=== PATIENT | male | born 1955 | race Caucasian/White ===

== ENCOUNTER → 2021-01-04 | Day surgery (SDC) | payer MEDICARE, OTHER | LOC: CSHRAD 10:10 | PROVIDERS: ATTEND Internal Medicine Gastroenterology | DX: R18.8 Other ascites (principal) | CPT/HCPCS: 76705 ==

== ENCOUNTER → 2021-01-31 | Day surgery (SDC) | payer MEDICARE, OTHER ==
[~2021-01-31] MED LIST: Albumin 25% 200 ML ONE; FLU VACC QS2020-21(65YR UP)/PF 240 MCG/0.7 ML SYRINGE IM ONE; Lidocaine 1% PF 5 ML VIAL ONE; Sodium Bicarbonate 2.5 MEQ/5 ML VIAL ONE
[2021-01-31 11:52] VITALS: BP 114/70
== END ==
LOC: CSHRAD 09:57
PROVIDERS: ATTEND Internal Medicine Gastroenterology
DX: R18.8 Other ascites (principal)
CPT/HCPCS: 49083; P9047

== ENCOUNTER → 2021-03-08 | Day surgery (SDC) | payer MEDICARE, OTHER ==
[~2021-03-08] MED LIST changes: +Albumin 25% 100 ML ONE; -Albumin 25% 200 ML ONE; -FLU VACC QS2020-21(65YR UP)/PF 240 MCG/0.7 ML SYRINGE IM ONE; -Lidocaine 1% PF 5 ML VIAL ONE
== END ==
LOC: CSHRAD 07:13
PROVIDERS: ATTEND Internal Medicine Gastroenterology
DX: R18.8 Other ascites (principal); K74.60 Unspecified cirrhosis of liver
CPT/HCPCS: 49083; P9047

== ENCOUNTER 2021-06-07 09:51 | Day surgery (SDC) | payer MEDICARE, OTHER ==
[2021-06-07] MEDS ORDERED: Sodium Bicarbonate 2.5 MEQ/5 ML VIAL ONE (10:48)
[2021-06-07] MEDS ORDERED: Albumin 25% 100 ML ONE ×2 (11:04→11:08)
== END 2021-06-07 12:25 | disposition home or self-care (01) ==
LOC: CSHRAD 09:51
PROVIDERS: ATTEND Internal Medicine Gastroenterology
DX: R18.8 Other ascites (principal)
CPT/HCPCS: 49083; P9047

== ENCOUNTER 2021-09-04 09:48 | Day surgery (SDC) | payer MEDICARE, OTHER ==
[2021-09-04] MEDS ORDERED: Albumin 25% 100 ML ONE (10:17)
[2021-09-04] MEDS ORDERED: Sodium Bicarbonate 2.5 MEQ/5 ML VIAL ONE (10:18)
[2021-09-04 10:33] VITALS: BP 136/65; TEMP 97.4
[2021-09-04] MEDS ORDERED: FLU VACC QS2021-22(65YR UP)/PF 240 MCG/0.7 ML SYRINGE IM ONE (10:45)
[2021-09-04 16:20] LABS: Fluid, Protein 1.7 g/dL (Not Available)
== END 2021-09-04 11:44 | disposition home or self-care (01) ==
LOC: CSHRAD 09:48
PROVIDERS: ATTEND Internal Medicine Gastroenterology
DX: R18.8 Other ascites (principal)
CPT/HCPCS: 49083; 82945; 84157; P9047; 88112

== ENCOUNTER 2021-10-09 10:20 | Day surgery (SDC) | payer MEDICARE, OTHER ==
[2021-10-09] MEDS ORDERED: Lidocaine 1% PF 5 ML VIAL ONE (11:49)
[2021-10-09] MEDS ORDERED: Albumin 25% 100 ML ONE (11:49)
[2021-10-09] MEDS ORDERED: Sodium Bicarbonate 2.5 MEQ/5 ML VIAL ONE (11:49)
== END 2021-10-09 13:00 | disposition home or self-care (01) ==
LOC: CSHRAD 10:20
PROVIDERS: ATTEND Internal Medicine Gastroenterology
DX: R18.8 Other ascites (principal); K74.60 Unspecified cirrhosis of liver
CPT/HCPCS: 49083; P9047

== ENCOUNTER 2021-11-06 09:56 | Day surgery (SDC) | payer MEDICARE, OTHER ==
[2021-11-06 10:29] VITALS: BP 132/62; TEMP 98.9
[2021-11-06] MEDS ORDERED: Sodium Bicarbonate 2.5 MEQ/5 ML VIAL ONE (10:31)
[2021-11-06] MEDS ORDERED: Lidocaine 1% PF 5 ML VIAL ONE (10:31)
[2021-11-06] MEDS ORDERED: Albumin 25% 100 ML ONE (10:31)
== END 2021-11-06 11:35 | disposition home or self-care (01) ==
LOC: CSHRAD 09:56
PROVIDERS: ATTEND Internal Medicine Gastroenterology
DX: R18.8 Other ascites (principal)
CPT/HCPCS: 49083; P9047

== ENCOUNTER 2021-11-29 08:35 | Day surgery (SDC) | payer MEDICARE, OTHER ==
[2021-11-29] MEDS ORDERED: Albumin 25% 100 ML ONE (09:24)
[2021-11-29] MEDS ORDERED: Sodium Bicarbonate 2.5 MEQ/5 ML VIAL ONE (09:24)
[2021-11-29] MEDS ORDERED: Lidocaine 1% PF 5 ML VIAL ONE ×2 (09:24→09:40)
[2021-11-29 09:44] LABS: INR-International Normal Ratio 1.1; Prothrombin Time 12.4 sec (9.5-12.1)
[2021-11-29 10:03] LABS: #Eosinphils 0.1 10x3/uL (0.0-0.5); #Monocytes 0.7 10x3/uL (0.0-1.1); #Neutrophils 6.3 10x3/uL (1.5-8.4); %Basophils 0.4 % (0.0-2.0); %Eosinophils 0.8 % (0.0-6.0); %Lymphocytes 6.7 % (18.0-47.0); %Neutrophils 82.8 % (40.0-75.0); Hemoglobin 5.8 g/dL (13.5-17.5); Mean Corpuscular HGB CONC 27.8 g/dL (32.0-36.0); Mean Corpuscular Hemoglobin 21.9 pg (27.0-33.0); Mean Corpuscular Volume 78.9 fl (81.2-95.1); Mean Platelet Volume 12.2 fl (7.4-10.4); Platelet Count 104 10x3/uL (150-450); RBC Distribution Width 20.6 % (11.5-14.5); Red Blood Cell (RBC) Count 2.65 10x6/uL (4.32-5.72); White Blood Cell (WBC) Count 7.6 10x3/uL (3.5-10.5)
[2021-11-29 11:14] LABS: Hypochromia SLIGHT = 6-15 cells (100X) (0-5/hpf); Ovalocytes SLIGHT = 2-5 cells (100X) (0-1/hpf); Platelet Morphology Comment Appears Decreased; Polychromasia SLIGHT = 2-3 cells (100X) (0-2/hpf)
== END 2021-11-29 10:30 | disposition still patient (30) ==
LOC: CSHRAD 08:35
PROVIDERS: ATTEND Internal Medicine Gastroenterology
DX: R18.8 Other ascites (principal)
CPT/HCPCS: 49083; 85025; 85610; P9047

== ENCOUNTER 2021-11-29 10:35 | Observation (INO) | payer MEDICARE, OTHER ==
[2021-11-29 11:42] LABS: #Monocytes 0.6 10x3/uL (0.0-1.1); #Neutrophils 5.6 10x3/uL (1.5-8.4); %Basophils 0.1 % (0.0-2.0); %Eosinophils 0.6 % (0.0-6.0); %Lymphocytes 6.5 % (18.0-47.0); %Monocytes 9.1 % (0.0-10.0); %Neutrophils 83.3 % (40.0-75.0); Hemoglobin 5.6 g/dL (13.5-17.5); Mean Corpuscular HGB CONC 27.5 g/dL (32.0-36.0); Mean Corpuscular Hemoglobin 21.9 pg (27.0-33.0); Mean Corpuscular Volume 79.7 fl (81.2-95.1); Mean Platelet Volume 11.2 fl (7.4-10.4); Platelet Count 96 10x3/uL (150-450); RBC Distribution Width 20.4 % (11.5-14.5); Red Blood Cell (RBC) Count 2.56 10x6/uL (4.32-5.72); White Blood Cell (WBC) Count 6.8 10x3/uL (3.5-10.5)
[2021-11-29 12:05] LABS: ALT (SGPT) 23 U/L (8-55); AST (SGOT) 33 U/L (5-34); Albumin 3.4 g/dL (3.4-4.8); Alkaline Phosphatase 91 U/L (40-110); Anion Gap 15 mmol/L (10-20); BUN (Urea Nitrogen) 38 mg/dL (8.4-25.7); Bilirubin, Total 1.1 mg/dL (0.2-1.2); Calc. Creatinine Clearance 0 mL/min (70-130); Calcium 8.8 mg/dL (7.8-10.44); Carbon Dioxide 18 mmol/L (23-31); Chloride 105 mmol/L (98-107); Globulin 3.8 g/dL (2.4-3.5); Glucose 108 mg/dL (80-115); Protein, Total 7.2 g/dL (5.8-8.1); Sodium 133 mmol/L (136-145)
[2021-11-29 12:24] LABS: SARS-CoV-2 NAA Rapid Test Not Detected (NotDetected)
[2021-11-29] MEDS ORDERED: Ondansetron ODT 4 MG TAB PO PRN (13:38)
[2021-11-29] MEDS ORDERED: Acetaminophen 325 MG TAB PO PRN (13:38)
[2021-11-29] MEDS ORDERED: Ondansetron PF 4 MG/2 ML Vial IVP PRN (13:38)
[2021-11-29] MEDS ORDERED: Acetaminophen 650 MG Suppository PR PRN (13:38)
[2021-11-29 15:41] LABS: Hemoglobin 6.3 g/dL (13.5-17.5)
[2021-11-29 16:54] VITALS: BMI 30.2
[2021-11-30 05:46] LABS: Anion Gap 14 mmol/L (10-20); BUN (Urea Nitrogen) 36 mg/dL (8.4-25.7); Calc. Creatinine Clearance 52 mL/min (70-130); Calcium 8.3 mg/dL (7.8-10.44); Carbon Dioxide 18 mmol/L (23-31); Chloride 105 mmol/L (98-107); Glucose 103 mg/dL (80-115); Iron 44 ug/dL (65-175); Iron Binding Capacity, Total 326 mcg/dL (261-462); Potassium 4.9 mmol/L (3.5-5.1); Sodium 132 mmol/L (136-145)
[2021-11-30 05:47] LABS: Iron 44 ug/dL (65-175); Iron Binding Capacity, Total 320 mcg/dL (261-462)
[2021-11-30 07:21] LABS: #Eosinphils 0.2 10x3/uL (0.0-0.5); #Monocytes 0.6 10x3/uL (0.0-1.1); %Basophils 0.5 % (0.0-2.0); %Eosinophils 2.6 % (0.0-6.0); %Lymphocytes 8.1 % (18.0-47.0); %Monocytes 9.8 % (0.0-10.0); %Neutrophils 78.5 % (40.0-75.0); Hemoglobin 7.1 g/dL (13.5-17.5); Mean Corpuscular HGB CONC 30.1 g/dL (32.0-36.0); Mean Corpuscular Hemoglobin 23.4 pg (27.0-33.0); Mean Corpuscular Volume 77.9 fl (81.2-95.1); Mean Platelet Volume 11.1 fl (7.4-10.4); Platelet Count 97 10x3/uL (150-450); RBC Distribution Width 19.4 % (11.5-14.5); Red Blood Cell (RBC) Count 3.03 10x6/uL (4.32-5.72); White Blood Cell (WBC) Count 6.4 10x3/uL (3.5-10.5)
[2021-12-01 06:15] LABS: #Eosinphils 0.2 10x3/uL (0.0-0.5); #Monocytes 0.8 10x3/uL (0.0-1.1); #Neutrophils 5.5 10x3/uL (1.5-8.4); %Basophils 0.6 % (0.0-2.0); %Eosinophils 3.2 % (0.0-6.0); %Lymphocytes 6.9 % (18.0-47.0); %Monocytes 11.7 % (0.0-10.0); %Neutrophils 77.2 % (40.0-75.0); Hemoglobin 7.4 g/dL (13.5-17.5); Mean Corpuscular HGB CONC 29.7 g/dL (32.0-36.0); Mean Corpuscular Hemoglobin 23.3 pg (27.0-33.0); Mean Corpuscular Volume 78.3 fl (81.2-95.1); Mean Platelet Volume 11.5 fl (7.4-10.4); Platelet Count 84 10x3/uL (150-450); RBC Distribution Width 19.1 % (11.5-14.5); Red Blood Cell (RBC) Count 3.18 10x6/uL (4.32-5.72); White Blood Cell (WBC) Count 7.1 10x3/uL (3.5-10.5)
[2021-12-01] MEDS ORDERED: Ferrous Sulfate 325 MG TAB PO SCH (08:00)
[2021-12-01 13:15] VITALS: BP 119/58; TEMP 98.3
== END 2021-12-01 13:20 | disposition home or self-care (01) ==
LOC: CSHERS 10:35 → CSHTELE 16:40
PROVIDERS: ADMIT Internal Medicine; ATTEND Family Medicine
DX: K92.2 Gastrointestinal hemorrhage, unspecified (principal); D50.0 Iron deficiency anemia secondary to blood loss (chronic); K70.31 Alcoholic cirrhosis of liver with ascites; N17.9 Acute kidney failure, unspecified; K21.9 Gastro-esophageal reflux disease without esophagitis; E11.9 Type 2 diabetes mellitus without complications; Z95.2 Presence of prosthetic heart valve; Z79.899 Other long term (current) drug therapy; Z87.891 Personal history of nicotine dependence; Z20.822 Contact with and (suspected) exposure to COVID-19
CPT/HCPCS: 36430 ×2; 49083; 71045; 80048; 80053; 82607; 82668; 82746; 83540; 83550; 84484; 85014; 85018; 85025 ×3; 86850; 86900; 86901; 86920; 93005; 94760; 99285; G0378 ×4; P9016 ×2; U0002; 36415; 82274; 85610; P9047

== ENCOUNTER 2021-12-11 09:27 | Day surgery (SDC) | payer MEDICARE, OTHER ==
[2021-12-11] MEDS ORDERED: Albumin 25% 100 ML ONE ×2 (10:10→11:14)
[2021-12-11] MEDS ORDERED: Lidocaine 1% PF 5 ML VIAL ONE (10:31)
[2021-12-11] MEDS ORDERED: Sodium Bicarbonate 2.5 MEQ/5 ML VIAL ONE (10:32)
[2021-12-11 10:49] VITALS: BP 104/59; TEMP 98.3
[2021-12-11] MEDS ORDERED: FLU VACC QS2021-22(65YR UP)/PF 240 MCG/0.7 ML SYRINGE IM ONE (11:00)
== END 2021-12-11 11:59 | disposition home or self-care (01) ==
LOC: CSHRAD 09:27
PROVIDERS: ATTEND Internal Medicine Gastroenterology
DX: R18.8 Other ascites (principal)
CPT/HCPCS: 49083; P9047

== ENCOUNTER 2021-12-17 09:48 | Outpatient (CLI) | payer MEDICARE, OTHER ==
[2021-12-17 17:30] LABS: SARS-CoV-2 PCR by NAA Not Detected (NotDetected)
== END 2021-12-17 09:49 | disposition home or self-care (01) ==
LOC: CSHLAB 09:48
PROVIDERS: ATTEND Internal Medicine Gastroenterology
DX: Z20.822 Contact with and (suspected) exposure to COVID-19 (principal); D64.9 Anemia, unspecified; K74.60 Unspecified cirrhosis of liver
CPT/HCPCS: U0003; U0005

== ENCOUNTER 2021-12-20 07:30 | Day surgery (SDC) | payer MEDICARE, OTHER ==
[2021-12-14 12:13] VITALS: BMI 29.7
[2021-12-20] MEDS ORDERED: Lidocaine 1% MPF 2 ML VIAL ONE (08:37)
[2021-12-20] MEDS ORDERED: ceFAZolin 2 GM/Dextrose 50 ML IVPB ONE (08:41)
[2021-12-20] MEDS ORDERED: Lidocaine 1% PF 5 ML VIAL ONE (08:45)
[2021-12-20] MEDS ORDERED: PROPOFOL 20 ML ONE (08:45)
[2021-12-20] MEDS ORDERED: Fentanyl 100 MCG/2 ML VIAL ONE (08:45)
[2021-12-20] MEDS ORDERED: Ketamine 50 MG/ML (10ML VIAL) ONE (09:00)
[2021-12-20] MEDS ORDERED: Midazolam HCl 2 mg/2 ml Vial ONE (09:03)
== END 2021-12-20 10:18 | disposition home or self-care (01) ==
LOC: CSHSDC 07:30
PROVIDERS: ATTEND Internal Medicine Gastroenterology
PROC: 0DJD8ZZ Inspection of Lower Intestinal Tract, Via Natural or Artificial Opening Endoscopic (ICD-10-PCS; principal; 2021-12-20)
PROC: 0DJ08ZZ Inspection of Upper Intestinal Tract, Via Natural or Artificial Opening Endoscopic (ICD-10-PCS; 2021-12-20)
DX: D64.9 Anemia, unspecified (principal); K74.69 Other cirrhosis of liver; I85.10 Secondary esophageal varices without bleeding; K76.6 Portal hypertension; R18.8 Other ascites; K57.30 Diverticulosis of large intestine without perforation or abscess without bleeding; K64.9 Unspecified hemorrhoids; K31.89 Other diseases of stomach and duodenum; K44.9 Diaphragmatic hernia without obstruction or gangrene; E11.9 Type 2 diabetes mellitus without complications; I10 Essential (primary) hypertension; E78.5 Hyperlipidemia, unspecified
CPT/HCPCS: J0690; J2250; J2704; J3010

== ENCOUNTER 2021-12-25 09:29 | Day surgery (SDC) | payer MEDICARE, OTHER ==
[2021-12-25] MEDS ORDERED: Sodium Bicarbonate 2.5 MEQ/5 ML VIAL ONE (09:51)
[2021-12-25] MEDS ORDERED: Lidocaine 1% PF 5 ML VIAL ONE (09:51)
[2021-12-25] MEDS ORDERED: Albumin 25% 200 ML ONE (09:51)
[2021-12-25 10:25] VITALS: BP 110/57; TEMP 98.2
[2021-12-25] MEDS ORDERED: FLU VACC QS2021-22(65YR UP)/PF 240 MCG/0.7 ML SYRINGE IM ONE (10:45)
[2021-12-25 12:48] LABS: BF Color Colorless; BF WBC/Nonhematics Ct.-Manual 29 /cu.mm; Body Fluid Source Paracentesis Fluid; Clarity Hazy (Clear); Tube # EDTA
[2021-12-25 12:49] LABS: BF RBC Count - Manual 42 /cu.mm
[2021-12-25 13:11] LABS: BF Segmented Neutrophils 23 %; Lymphocytes 50 %
[2021-12-25 13:12] LABS: Cell Count Non Hematic 27 %
== END 2021-12-25 12:00 | disposition home or self-care (01) ==
LOC: CSHRAD 09:29
PROVIDERS: ATTEND Internal Medicine Gastroenterology
DX: R18.8 Other ascites (principal)
CPT/HCPCS: 49083; 82945; 84157; 89051; P9047

== ENCOUNTER 2022-01-29 11:47 | Inpatient (IN) | payer MEDICARE, OTHER ==
[2022-01-29 12:58] LABS: #Monocytes 0.8 10x3/uL (0.0-1.1); #Neutrophils 8.8 10x3/uL (1.5-8.4); %Basophils 0.3 % (0.0-2.0); %Eosinophils 0.2 % (0.0-6.0); %Lymphocytes 4.3 % (18.0-47.0); %Monocytes 8.1 % (0.0-10.0); %Neutrophils 86.3 % (40.0-75.0); Hemoglobin 6.5 g/dL (13.5-17.5); Mean Corpuscular HGB CONC 31.4 g/dL (32.0-36.0); Mean Corpuscular Hemoglobin 32.3 pg (27.0-33.0); Mean Platelet Volume 11.1 fl (7.4-10.4); Platelet Count 104 10x3/uL (150-450); RBC Distribution Width 18.6 % (11.5-14.5); Red Blood Cell (RBC) Count 2.01 10x6/uL (4.32-5.72); White Blood Cell (WBC) Count 10.2 10x3/uL (3.5-10.5)
[2022-01-29 13:20] LABS: ALT (SGPT) 30 U/L (8-55); AST (SGOT) 39 U/L (5-34); Albumin 3.6 g/dL (3.4-4.8); Alkaline Phosphatase 105 U/L (40-110); Anion Gap 16 mmol/L (10-20); BUN (Urea Nitrogen) 68 mg/dL (8.4-25.7); Bilirubin, Total 1.3 mg/dL (0.2-1.2); CK (CPK) 86 U/L (30-200); Calc. Creatinine Clearance 0 mL/min (70-130); Carbon Dioxide 16 mmol/L (23-31); Chloride 103 mmol/L (98-107); Glucose 110 mg/dL (80-115); Magnesium 2.7 mg/dL (1.6-2.6); Potassium 5.9 mmol/L (3.5-5.1); Protein, Total 6.6 g/dL (5.8-8.1); Sodium 129 mmol/L (136-145)
[2022-01-29] MEDS ORDERED: Sodium Bicarb 50 MEQ/50 ML VIAL ONE (14:52)
[2022-01-29] MEDS ORDERED: Insulin Regular 300 UNITS/3 ML VIAL ONE (14:53)
[2022-01-29] MEDS ORDERED: Calcium Gluc 4.6 MEQ/10 ML (100 MG/ML) ONE (15:15)
[2022-01-29 16:36] LABS: Troponin I 0.021 ng/mL (< 0.028)
[2022-01-29 18:08] VITALS: BMI 28.3
[2022-01-29 20:11] LABS: Anion Gap 15 mmol/L (10-20); BUN (Urea Nitrogen) 64 mg/dL (8.4-25.7); Calc. Creatinine Clearance 39 mL/min (70-130); Calcium 8.9 mg/dL (7.8-10.44); Carbon Dioxide 18 mmol/L (23-31); Chloride 105 mmol/L (98-107); Glucose 106 mg/dL (80-115); Sodium 133 mmol/L (136-145)
[2022-01-29 20:18] LABS: Troponin I 0.022 ng/mL (< 0.028)
[2022-01-29] MEDS ORDERED: Famotidine 20 MG TAB PO SCH (21:00)
[2022-01-29] MEDS: cefTRIAXone\\ROCEPHIN 2 GM in Sodium Chloride 0.9% 100 ML IVPB SCH (21:12)
[2022-01-29] MEDS ORDERED: FLU VACC QS2021-22(65YR UP)/PF 240 MCG/0.7 ML SYRINGE IM ONE (22:00)
[2022-01-29] MEDS ORDERED: Sodium Chloride 0.9% 1,000 ML IV SCH (22:00)
[2022-01-29 22:16] LABS: #Monocytes 0.1 10x3/uL (0.0-1.1); %Lymphocytes 35.7 % (18.0-47.0); %Monocytes 3.5 % (0.0-10.0); Hemoglobin 6.8 g/dL (13.5-17.5); Mean Corpuscular HGB CONC 32.7 g/dL (32.0-36.0); Mean Corpuscular Hemoglobin 31.9 pg (27.0-33.0); Mean Corpuscular Volume 97.7 fl (81.2-95.1); Mean Platelet Volume 11.1 fl (7.4-10.4); Platelet Count 136 10x3/uL (150-450); RBC Distribution Width 18.7 % (11.5-14.5); Red Blood Cell (RBC) Count 2.13 10x6/uL (4.32-5.72); White Blood Cell (WBC) Count 3.4 10x3/uL (3.5-10.5)
[2022-01-29] MEDS: Albumin 25% 25 GM/100 ML BOT IVPB SCH (22:22)
[2022-01-29] MEDS: Pantoprazole 40 MG VIAL IVP SCH (22:22)
[2022-01-29 22:24] LABS: ALT (SGPT) 25 U/L (8-55); AST (SGOT) 30 U/L (5-34); Alkaline Phosphatase 86 U/L (40-110); Anion Gap 18 mmol/L (10-20); BUN (Urea Nitrogen) 65 mg/dL (8.4-25.7); Calc. Creatinine Clearance 39 mL/min (70-130); Calcium 8.6 mg/dL (7.8-10.44); Carbon Dioxide 16 mmol/L (23-31); Chloride 105 mmol/L (98-107); Globulin 2.5 g/dL (2.4-3.5); Glucose 138 mg/dL (80-115); Potassium 4.7 mmol/L (3.5-5.1); Protein, Total 5.5 g/dL (5.8-8.1); Sodium 134 mmol/L (136-145)
[2022-01-29 23:14] LABS: SARS-CoV-2 NAA Rapid Test Not Detected (NotDetected)
[2022-01-30] MEDS: Albumin 25% 25 GM/100 ML BOT IVPB SCH ×3 (03:31→16:40)
[2022-01-30 06:54] LABS: ALT (SGPT) 27 U/L (8-55); AST (SGOT) 28 U/L (5-34); Albumin 3.4 g/dL (3.4-4.8); Alkaline Phosphatase 83 U/L (40-110); Anion Gap 16 mmol/L (10-20); BUN (Urea Nitrogen) 57 mg/dL (8.4-25.7); Calc. Creatinine Clearance 43 mL/min (70-130); Calcium 8.4 mg/dL (7.8-10.44); Carbon Dioxide 17 mmol/L (23-31); Chloride 107 mmol/L (98-107); Globulin 2.3 g/dL (2.4-3.5); Glucose 104 mg/dL (80-115); Potassium 4.2 mmol/L (3.5-5.1); Protein, Total 5.7 g/dL (5.8-8.1); Sodium 136 mmol/L (136-145)
[2022-01-30 06:58] LABS: #Monocytes 0.7 10x3/uL (0.0-1.1); #Neutrophils 6.1 10x3/uL (1.5-8.4); %Basophils 0.1 % (0.0-2.0); %Eosinophils 0.6 % (0.0-6.0); %Lymphocytes 4.3 % (18.0-47.0); %Monocytes 9.9 % (0.0-10.0); %Neutrophils 84.3 % (40.0-75.0); Hemoglobin 6.9 g/dL (13.5-17.5); Mean Corpuscular HGB CONC 33.3 g/dL (32.0-36.0); Mean Corpuscular Hemoglobin 32.2 pg (27.0-33.0); Mean Corpuscular Volume 96.7 fl (81.2-95.1); Mean Platelet Volume 10.5 fl (7.4-10.4); Platelet Count 78 10x3/uL (150-450); RBC Distribution Width 18.2 % (11.5-14.5); Red Blood Cell (RBC) Count 2.14 10x6/uL (4.32-5.72); White Blood Cell (WBC) Count 7.2 10x3/uL (3.5-10.5)
[2022-01-30] MEDS ORDERED: Pantoprazole 40 MG VIAL ONE (08:10)
[2022-01-30] MEDS: Multivit, Therapeutic 1 TAB PO SCH (08:30)
[2022-01-30] MEDS: Pantoprazole 40 MG VIAL IVP SCH ×2 (09:56→21:51)
[2022-01-30 11:59] LABS: Hemoglobin 7.3 g/dL (13.5-17.5); Platelet Count 74 10x3/uL (150-450)
[2022-01-30] MEDS: cefTRIAXone\\ROCEPHIN 2 GM in Sodium Chloride 0.9% 100 ML IVPB SCH (21:51)
[2022-01-31 04:41] LABS: #Eosinphils 0.2 10x3/uL (0.0-0.5); #Monocytes 0.8 10x3/uL (0.0-1.1); #Neutrophils 5.2 10x3/uL (1.5-8.4); %Basophils 0.5 % (0.0-2.0); %Eosinophils 2.7 % (0.0-6.0); %Lymphocytes 5.7 % (18.0-47.0); %Monocytes 11.3 % (0.0-10.0); %Neutrophils 79.2 % (40.0-75.0); Hemoglobin 7.6 g/dL (13.5-17.5); Mean Corpuscular Hemoglobin 31.9 pg (27.0-33.0); Mean Corpuscular Volume 96.6 fl (81.2-95.1); Platelet Count 84 10x3/uL (150-450); RBC Distribution Width 17.9 % (11.5-14.5); Red Blood Cell (RBC) Count 2.38 10x6/uL (4.32-5.72); White Blood Cell (WBC) Count 6.6 10x3/uL (3.5-10.5)
[2022-01-31 04:59] LABS: ALT (SGPT) 27 U/L (8-55); AST (SGOT) 37 U/L (5-34); Albumin 3.6 g/dL (3.4-4.8); Alkaline Phosphatase 93 U/L (40-110); Anion Gap 15 mmol/L (10-20); BUN (Urea Nitrogen) 48 mg/dL (8.4-25.7); Bilirubin, Total 1.5 mg/dL (0.2-1.2); Calc. Creatinine Clearance 47 mL/min (70-130); Calcium 8.6 mg/dL (7.8-10.44); Carbon Dioxide 18 mmol/L (23-31); Chloride 105 mmol/L (98-107); Globulin 2.5 g/dL (2.4-3.5); Glucose 91 mg/dL (80-115); Potassium 4.2 mmol/L (3.5-5.1); Protein, Total 6.1 g/dL (5.8-8.1); Sodium 134 mmol/L (136-145)
[2022-01-31] MEDS: Multivit, Therapeutic 1 TAB PO SCH (09:29)
[2022-01-31] MEDS: Pantoprazole 40 MG VIAL IVP SCH ×3 (09:29→22:19)
[2022-01-31] MEDS: Ferrous Sulfate 325 MG TAB PO SCH (09:29)
[2022-01-31] MEDS ORDERED: Rifaximin 550 MG TAB PO SCH (12:00)
[2022-01-31] MEDS: cefTRIAXone\\ROCEPHIN 2 GM in Sodium Chloride 0.9% 100 ML IVPB SCH (22:13)
[2022-01-31] MEDS: Rifaximin 550 MG TAB PO SCH (22:19)
[2022-02-01 04:00] LABS: #Eosinphils 0.2 10x3/uL (0.0-0.5); #Monocytes 0.8 10x3/uL (0.0-1.1); #Neutrophils 7.3 10x3/uL (1.5-8.4); %Basophils 0.3 % (0.0-2.0); %Eosinophils 1.9 % (0.0-6.0); %Lymphocytes 2.7 % (18.0-47.0); %Monocytes 9.3 % (0.0-10.0); %Neutrophils 85.1 % (40.0-75.0); Hemoglobin 7.6 g/dL (13.5-17.5); Mean Corpuscular HGB CONC 32.9 g/dL (32.0-36.0); Mean Corpuscular Hemoglobin 32.6 pg (27.0-33.0); Mean Corpuscular Volume 99.1 fl (81.2-95.1); Mean Platelet Volume 11.6 fl (7.4-10.4); Platelet Count 82 10x3/uL (150-450); RBC Distribution Width 17.6 % (11.5-14.5); Red Blood Cell (RBC) Count 2.33 10x6/uL (4.32-5.72); White Blood Cell (WBC) Count 8.6 10x3/uL (3.5-10.5)
[2022-02-01 04:07] LABS: ALT (SGPT) 27 U/L (8-55); AST (SGOT) 32 U/L (5-34); Albumin 3.3 g/dL (3.4-4.8); Alkaline Phosphatase 101 U/L (40-110); Anion Gap 15 mmol/L (10-20); BUN (Urea Nitrogen) 36 mg/dL (8.4-25.7); Calc. Creatinine Clearance 46 mL/min (70-130); Calcium 8.2 mg/dL (7.8-10.44); Carbon Dioxide 18 mmol/L (23-31); Chloride 104 mmol/L (98-107); Globulin 2.4 g/dL (2.4-3.5); Glucose 111 mg/dL (80-115); Protein, Total 5.7 g/dL (5.8-8.1); Sodium 133 mmol/L (136-145)
[2022-02-01] MEDS: Multivit, Therapeutic 1 TAB PO SCH (08:32)
[2022-02-01] MEDS: Ferrous Sulfate 325 MG TAB PO SCH (08:32)
[2022-02-01] MEDS: Pantoprazole 40 MG VIAL IVP SCH ×2 (08:33→20:34)
[2022-02-01] MEDS: Rifaximin 550 MG TAB PO SCH ×2 (08:37→20:34)
[2022-02-01] MEDS: Albumin 25% 25 GM/100 ML BOT IVPB SCH ×2 (13:21→17:49)
[2022-02-01] MEDS: cefTRIAXone\\ROCEPHIN 2 GM in Sodium Chloride 0.9% 100 ML IVPB SCH (20:31)
[2022-02-02] MEDS: Albumin 25% 25 GM/100 ML BOT IVPB SCH ×2 (00:27→06:04)
[2022-02-02 04:50] LABS: #Eosinphils 0.4 10x3/uL (0.0-0.5); #Monocytes 0.7 10x3/uL (0.0-1.1); #Neutrophils 5.4 10x3/uL (1.5-8.4); %Basophils 0.3 % (0.0-2.0); %Eosinophils 5.4 % (0.0-6.0); %Lymphocytes 4.7 % (18.0-47.0); %Monocytes 10.8 % (0.0-10.0); %Neutrophils 78.4 % (40.0-75.0); Hemoglobin 6.8 g/dL (13.5-17.5); Mean Corpuscular HGB CONC 32.2 g/dL (32.0-36.0); Mean Corpuscular Hemoglobin 32.1 pg (27.0-33.0); Mean Corpuscular Volume 99.5 fl (81.2-95.1); Mean Platelet Volume 11.4 fl (7.4-10.4); Platelet Count 66 10x3/uL (150-450); Red Blood Cell (RBC) Count 2.12 10x6/uL (4.32-5.72); White Blood Cell (WBC) Count 6.9 10x3/uL (3.5-10.5)
[2022-02-02 05:15] LABS: ALT (SGPT) 25 U/L (8-55); AST (SGOT) 31 U/L (5-34); Albumin 3.6 g/dL (3.4-4.8); Alkaline Phosphatase 77 U/L (40-110); Anion Gap 14 mmol/L (10-20); BUN (Urea Nitrogen) 32 mg/dL (8.4-25.7); Calc. Creatinine Clearance 49 mL/min (70-130); Calcium 8.4 mg/dL (7.8-10.44); Carbon Dioxide 19 mmol/L (23-31); Chloride 104 mmol/L (98-107); Globulin 2.2 g/dL (2.4-3.5); Glucose 81 mg/dL (80-115); Potassium 3.7 mmol/L (3.5-5.1); Protein, Total 5.8 g/dL (5.8-8.1); Sodium 133 mmol/L (136-145)
[2022-02-02] MEDS: Ferrous Sulfate 325 MG TAB PO SCH (09:07)
[2022-02-02] MEDS: Pantoprazole 40 MG VIAL IVP SCH ×2 (09:10→22:11)
[2022-02-02] MEDS: Multivit, Therapeutic 1 TAB PO SCH (09:10)
[2022-02-02] MEDS: Rifaximin 550 MG TAB PO SCH ×2 (09:30→22:08)
[2022-02-02] MEDS: cefTRIAXone\\ROCEPHIN 2 GM in Sodium Chloride 0.9% 100 ML IVPB SCH (22:10)
[2022-02-03 04:38] LABS: Anion Gap 15 mmol/L (10-20); BUN (Urea Nitrogen) 27 mg/dL (8.4-25.7); Calc. Creatinine Clearance 52 mL/min (70-130); Calcium 8.6 mg/dL (7.8-10.44); Carbon Dioxide 19 mmol/L (23-31); Chloride 104 mmol/L (98-107); Glucose 90 mg/dL (80-115); Sodium 134 mmol/L (136-145)
[2022-02-03 05:18] LABS: #Eosinphils 0.4 10x3/uL (0.0-0.5); #Monocytes 0.7 10x3/uL (0.0-1.1); #Neutrophils 5.9 10x3/uL (1.5-8.4); %Basophils 0.3 % (0.0-2.0); %Eosinophils 5.2 % (0.0-6.0); %Lymphocytes 4.4 % (18.0-47.0); %Monocytes 9.5 % (0.0-10.0); %Neutrophils 80.2 % (40.0-75.0); Hemoglobin 8.2 g/dL (13.5-17.5); Mean Corpuscular HGB CONC 32.8 g/dL (32.0-36.0); Mean Corpuscular Hemoglobin 31.2 pg (27.0-33.0); Mean Corpuscular Volume 95.1 fl (81.2-95.1); Mean Platelet Volume 11.1 fl (7.4-10.4); Platelet Count 76 10x3/uL (150-450); RBC Distribution Width 17.2 % (11.5-14.5); Red Blood Cell (RBC) Count 2.63 10x6/uL (4.32-5.72); White Blood Cell (WBC) Count 7.3 10x3/uL (3.5-10.5)
[2022-02-03 07:01] LABS: Platelet Morphology Comment Appears Decreased; RBC Morphology Normal
[2022-02-03] MEDS: Pantoprazole 40 MG VIAL IVP SCH (09:57)
[2022-02-03] MEDS: Rifaximin 550 MG TAB PO SCH (10:00)
[2022-02-03] MEDS: Multivit, Therapeutic 1 TAB PO SCH (10:01)
[2022-02-03] MEDS: Ferrous Sulfate 325 MG TAB PO SCH (10:01)
[2022-02-03 13:16] VITALS: BP 119/58; TEMP 98
== END 2022-02-03 15:30 | disposition home or self-care (01) | DRG 441 ==
LOC: CSHERS 11:47 → CSHTELE 17:46
PROVIDERS: ADMIT Emergency Medicine; ATTEND Internal Medicine
PROC: 30233N1 Transfusion of Nonautologous Red Blood Cells into Peripheral Vein, Percutaneous Approach (ICD-10-PCS; principal; 2022-01-29)
DX: K72.00 Acute and subacute hepatic failure without coma (principal); K76.7 Hepatorenal syndrome; N17.9 Acute kidney failure, unspecified; I42.9 Cardiomyopathy, unspecified; E87.1 Hypo-osmolality and hyponatremia; E87.2 Acidosis; Z20.822 Contact with and (suspected) exposure to COVID-19; K70.31 Alcoholic cirrhosis of liver with ascites; E87.5 Hyperkalemia; I12.9 Hypertensive chronic kidney disease with stage 1 through stage 4 chronic kidney disease, or unspecified chronic kidney disease; E78.5 Hyperlipidemia, unspecified; E86.1 Hypovolemia; D63.8 Anemia in other chronic diseases classified elsewhere; D69.59 Other secondary thrombocytopenia; N18.30 Chronic kidney disease, stage 3 unspecified; E88.09 Other disorders of plasma-protein metabolism, not elsewhere classified; Z96.651 Presence of right artificial knee joint; I95.9 Hypotension, unspecified; K21.9 Gastro-esophageal reflux disease without esophagitis; E11.22 Type 2 diabetes mellitus with diabetic chronic kidney disease; Z95.2 Presence of prosthetic heart valve; Z79.899 Other long term (current) drug therapy; Z87.891 Personal history of nicotine dependence
CPT/HCPCS: 36415; 36416; 36430; 49083; 71045; 80048; 80053; 82042; 82140; 82274; 82550; 82945; 83735; 83880; 84443; 84484; 85025; 86850; 86900; 86901; 87070; 87205; 89051; 93005; 94760; 96365; 96375; C9113; J0610; J0696; J1815; J3490; J7050; P9016; P9047; U0002